=== PATIENT | male | born 1940 | race Asian ===

== ENCOUNTER 2017-03-23 20:34 | Inpatient (IN) | payer OTHER ==
[~2017-03-23] VITALS: Ht 162.6 cm; Wt 64.6 kg
[2017-03-23 21:27] LABS: BASOPHIL % 0.5 % (0-2); PLATELET COUNT 150 x10^3mcL (130-400); RED CELL DISTRIBUTION WIDTH 14.5 % (11.5-14.5)
[2017-03-23 21:28] LABS: UA SPECIFIC GRAVITY <=1.005 (1.005-1.035); microscopic required? YES; urine erythrocyte 3+ (NEGATIVE)
[2017-03-23 21:58] LABS: CARBON DIOXIDE 30.5 mmol/L (21-32); CHLORIDE SERUM 106 mmol/L (98-107); GLUCOSE SERUM 102 mg/dL (74-106); SODIUM SERUM 141 mmol/L (136-145)
[2017-03-23 22:02] LABS: ALBUMIN 4.1 g/dL (3.4-5.0); ALKALINE PHOSPHATASE 71 U/L (46-116); ALT/SGPT 26 U/L (16-63); AMYLASE 72 U/L (25-115); AST/SGOT 28 U/L (15-37); BILIRUBIN TOTAL 0.66 mg/dL (0.20-1.00); LIPASE 174 IU/L (73-393); TOTAL PROTEIN, SERUM 7.8 g/dL (6.4-8.2)
[2017-03-24] VITALS (7 sets, daily range): BP systolic 134–168; BP diastolic 70–90
[2017-03-24 02:40] LABS: CHOLESTEROL/HDL RATIO 2.9
[2017-03-24 02:43] LABS: T3 TOTAL 0.86 ng/mL
[2017-03-24 02:47] LABS: FREE T4 0.92 ng/dL (0.76-1.46); FREE THYROXINE INDEX 2.6 ug/dL (1.4-4.5)
[2017-03-24 09:20] LABS: BASOPHIL % 0.5 % (0-2); PLATELET COUNT 136 x10^3mcL (130-400); RED CELL DISTRIBUTION WIDTH 14.3 % (11.5-14.5)
[2017-03-24 09:37] LABS: CALCIUM 8.5 mg/dL (8.5-10.1); CARBON DIOXIDE 26.1 mmol/L (21-32); CHLORIDE SERUM 107 mmol/L (98-107); CREATININE SERUM 0.9 mg/dL (0.7-1.3); GLUCOSE SERUM 166 mg/dL (74-106); POTASSIUM SERUM 3.8 mmol/L (3.5-5.1); SODIUM SERUM 138 mmol/L (136-145)
[2017-03-25 05:52] VITALS: BP 131/67
[2017-03-25 06:20] LABS: BASOPHIL % 0.6 % (0-2)
[2017-03-25 06:48] LABS: PLATELET COUNT 129 x10^3mcL (130-400); RED CELL DISTRIBUTION WIDTH 14.7 % (11.5-14.5)
[2017-03-25 06:53] LABS: CALCIUM 8.2 mg/dL (8.5-10.1); CARBON DIOXIDE 25.3 mmol/L (21-32); CHLORIDE SERUM 108 mmol/L (98-107); CREATININE SERUM 0.9 mg/dL (0.7-1.3); GLUCOSE SERUM 95 mg/dL (74-106); MAGNESIUM 1.8 mg/dL (1.8-2.4); PHOSPHOROUS 3.4 mg/dL (2.5-4.9); POTASSIUM SERUM 3.9 mmol/L (3.5-5.1); SODIUM SERUM 142 mmol/L (136-145)
[2017-03-25 10:00] VITALS: BP 143/69
[2017-03-25 14:36] VITALS: BP 122/65
[2017-03-25 16:59] VITALS: BP 122/65
== END 2017-03-25 17:31 | disposition left against medical advice (07) | DRG 690 ==
LOC: ED 20:34 → DU 23:53
PROVIDERS: Emergency Medicine; ADMIT Family Medicine
DX: N30.91 Cystitis, unspecified with hematuria (principal); N13.9 Obstructive and reflux uropathy, unspecified; N21.0 Calculus in bladder; I09.9 Rheumatic heart disease, unspecified; K80.20 Calculus of gallbladder without cholecystitis without obstruction; Z53.20 Procedure and treatment not carried out because of patient's decision for unspecified reasons
CPT/HCPCS: 83880; 84439; J0696; J7030